=== PATIENT | male | born 1950 | race Caucasian/White ===

== ENCOUNTER → 2024-06-24 11:03 | Outpatient (CLI) | payer OTHER, SELFPAY ==
--- NOTE | 2024-06-24 11:07 | DI.RAD.S_ITS ---
PROCEDURE: XR CHEST 2V INDICATIONS: Compensatory emphysema TECHNIQUE: 2 views of the chest were acquired. COMPARISON: [facility], CT, CT LOW DOSE LUNG CA SCREENING, 05/24/2023, 10:41. FINDINGS: Surgical changes and devices: None. Lungs and pleura: Moderately prominent interstitium and likely scarring particularly in the mid and upper lungs. No dense airspace disease. No drainable pleural effusions. Mediastinum: Normal heart size. There is flattening of the hemidiaphragms bilaterally. Bones and chest wall: Degenerative changes IMPRESSION: Pulmonary hyperinflation and prominence of the interstitium especially in the mid and upper lungs, likely bronchitis and emphysema. Consider continued lung cancer screening. Dictated by: Xavier Love M.D. on 06/24/2024 at 12:53 Approved by: Xavier Love M.D. on 06/24/2024 at 12:54
== END ==
PROVIDERS: Referring Provider Chiropractor; Visit Provider Chiropractor
DX: J98.3 Compensatory emphysema (principal); F17.210 Nicotine dependence, cigarettes, uncomplicated
CPT/HCPCS: 71046; 94060